=== PATIENT | male | born 1960 | race Caucasian/White ===

== ENCOUNTER 2021-03-31 10:21 | Inpatient (IN) ==
--- NOTE | 2021-03-31 10:44 | Emergency Department Note ---
Impression & Plan Stroke-like symptoms, Hypertension, uncontrolled, Abnormal EKG, Transient cerebral ischemia ED Provider Note NAME: BRISA OLIVA AGE: 60 SEX: M : 1960 ARRIVES VIA: Walk-In INFORMANT: Patient ED PROVIDER(S): Nicola Laird DO CHIEF COMPLAINT: slurred speech HPI: Patient is a 60-year-old male who presents ER for slurred speech. Significant other noticed that he got up about 2 or 3 in the morning. And the slurred speech was there. It is much worse than it is now. He denies any headache or change in vision. No chest pain or shortness of breath. No nausea, vomiting, or diarrhea. No weakness or numbness. She notes that he woke up this morning and he is doing better and then friend texted her that he was having trouble in a Zoom meeting and consequently she came home and noticed slurred speech. She notes it is better than where it has been but is not normal. He denies taking any medications for blood pressures. ROS: See above HPI for pertinent positives & negatives. A total of 10 systems reviewed and were otherwise negative. PAST MEDICAL HISTORY:See Below PAST SURGICAL HISTORY:See Below FAMILY HISTORY:See Below SOCIAL HISTORY:See Below HOME MEDICATIONS:See Below ALLERGIES:See Below VITALS:See Below PHYSICAL EXAMINATION: GENERAL: Sitting up in bed, alert, well appearing, well nourished, no distress, non-toxic EYE EXAM: normal conjunctiva. PERRL and EOM's intact. OROPHARYNX: no exudate, no erythema, lips, buccal mucosa, and tongue normal and mucous membranes are moist NECK: supple, no nuchal rigidity, no adenopathy, non-tender LUNGS: Clear to auscultation. Normal chest wall mechanics HEART: no murmurs, S1 normal and S2 normal ABDOMEN: abdomen soft, non-tender, normo-active bowel sounds, no masses, no rebound or guarding. UPPER EXTREMITIES: upper extremities are grossly normal. LOWER EXTREMITIES: No pitting edema. NEURO EXAM: Normal sensorium, cranial nerves II-XII intact, normal speech, no weakness of arms, no weakness of legs. No drift. Finger to nose intact. Gross sensation intact. Able stand without difficulty. MEDICAL DECISION MAKING: Patient is a 60-year-old male who presents the ER for slurred speech which is been off and on since last night. Last known well was prior to bedtime. IV was established blood work was obtained. Labs show no significant leukocytosis or anemia. BMP with mild hypokalemia at 3.4. LFTs bilirubin and troponin was negative. Covid was negative. CT as well as CT angios of the head and neck showed no acute pathology. EKG was nondiagnostic. His neurologic exam is completely intact. Significant other still notes that there is a slight slurred speech but on my exam there is no audible slurring. At worst his NIH is 1. He is not a TPA candidate due to timing and low NIH. Patient was updated bedside. Question if this was secondary to blood pressure as upon presentation he was in the 240s by trended down to the 190s without intervention. Will hold on any treatment now as his symptoms are nearly completely resolved. Discussed with ricardo quintero hospitalist for further evaluation. Triage Nursing notes reviewed. Limited review of prior medical records performed Vital Signs: reviewed and remarkable for no significant abnormalities Differential diagnosis: Differential Diagnosis includes but is not limited to ischemic Stroke, hemorrhagic stroke, bells palsy, mass, neoplasm, migraine headache, seizure, subarachnoid hemorrhage, TIA, and transient global amnesia. ER treatment provided: See below Diagnostics interpreted by me: ECG: Sinus rhythm rate 88 Left axis No PVCs QTC 459 Cardiac Monitoring: An order was placed for continuous cardiac monitoring. The monitor shows a rate of 82 with sinus rhythm. Laboratory studies: As stated above and show below. Imaging studies: CTs as well as CT angios of the head and neck show no focal occlusion/clot Consultation(s): Discussed the hospitalist for further evaluation Procedures: none Critical Care: None Past Med/Surg History Social History Smoking Status: Never smoker Preferred Language: Filipino Feels Safe at Home: Yes Allergies Allergies Allergy/AdvReac Type Severity Reaction Status Date / Time CRUCIFEROUS VEGETABLES Allergy Severe PROJECTILE Uncoded 03/31/21 11:58 VOMITING Home Meds Home Medications Medication Instructions Recorded Confirmed No Known Home Medications 03/31/21 03/31/21 Results & Data (ED) Vital Signs Vital Signs - 24 hr 03/31/21 10:26 03/31/21 10:51 03/31/21 11:59 Temperature 36.4 C L Temperature Source Temporal Artery Scan Pulse Rate 88 Pulse Rate [Apical] 88 88 Pulse Rhythm Regular Pulse Strength Normal Respiratory Rate 20 18 18 Respiratory Effort / Characteristics Non-Labored Spontaneous Respiratory Depth Normal Respiratory Pattern Regular Blood Pressure 243/122 H Blood Pressure [Left Arm] 201/138 H 198/130 H Blood Pressure Mean 162 Blood Pressure Mean [Left Arm] 159 152 Blood Pressure Position Sitting Pulse Oximetry 99 97 97 Oxygen Delivery Method Room Air Room Air Room Air Sepsis Recent Fever Within 48 Hours No Sepsis New/Unexplained Change in Mental Status No Sepsis Action Taken by Nursing No Action Required 03/31/21 13:00 Temperature Temperature Source Pulse Rate Pulse Rate [Apical] 84 Pulse Rhythm Pulse Strength Respiratory Rate 18 Respiratory Effort / Characteristics Respiratory Depth Respiratory Pattern Blood Pressure Blood Pressure [Left Arm] 162/116 H Blood Pressure Mean Blood Pressure Mean [Left Arm] 131 Blood Pressure Position Pulse Oximetry 96 Oxygen Delivery Method Room Air Sepsis Recent Fever Within 48 Hours Sepsis New/Unexplained Change in Mental Status Sepsis Action Taken by Nursing Laboratory Data Result diagrams: 03/31/21 10:47 03/31/21 10:47 Lab Results 03/31/21 03/31/21 03/31/21 Range/Units 10:47 10:47 10:47 WBC 7.60 (4.8-10.8) K/uL RBC 4.52 L (4.7-6.1) M/uL Hgb 14.0 (14.0-18.0) g/dL Hct 40.6 L (42-52) % MCV 89.8 (80-100) fL MCH 31.0 (25-34) pg MCHC 34.5 (32-36) g/dL RDW Std Deviation 41.8 (36.4-46.3) fL RDW Coeff of Ariel 12.6 (11.5-14.5) % Plt Count 349 (130-400) K/uL MPV 9.7 (7.4-10.4) fL PT 9.8 (9.0-12.0) Seconds INR 1.0 (0.9-1.1) APTT 26.7 (21.0-31.0) Seconds PTT Ratio 1.0 Sodium 138 (136-145) mmol/L Potassium 3.4 L (3.5-5.1) mmol/L Chloride 106 (98-107) mmol/L Carbon Dioxide 24 (21-32) mmol/L Anion Gap 8.0 (3-11) BUN 14 (7-18) mg/dl Creatinine 0.95 (0.6-1.4) mg/dl Est Cr Clr Drug Dosing 80.6 ml/min Est GFR ( Amer) 99.0 Est GFR (Non-Af Amer) 85.4 BUN/Creatinine Ratio 14.9 (10-20) Glucose 125 H (70-99) mg/dl Calcium 9.4 (8.5-10.1) mg/dl Magnesium 2.2 (1.8-2.4) mg/dl Total Bilirubin 0.4 (0.2-1) mg/dl AST 19 (15-37) U/L ALT 37 (12-78) U/L Alkaline Phosphatase 79 (45-117) U/L Troponin I < 0.015 (0-0.045) ng/ml Total Protein 7.7 (6.4-8.2) gm/dl Albumin 3.8 (3.4-5.0) gm/dl Globulin 3.9 (2.5-4.0) gm/dl Albumin/Globulin Ratio 1.0 (0.9-2) COVID-19 Eval Order SARS-CoV-2 (PCR) (Negative) Influenza Type A (PCR) (Neg) Influenza Type B (PCR) (Neg) RSV (RT-PCR) (Neg) 03/31/21 03/31/21 Range/Units 11:35 11:35 WBC (4.8-10.8) K/uL RBC (4.7-6.1) M/uL Hgb (14.0-18.0) g/dL Hct (42-52) % MCV (80-100) fL MCH (25-34) pg MCHC (32-36) g/dL RDW Std Deviation (36.4-46.3) fL RDW Coeff of Ariel (11.5-14.5) % Plt Count (130-400) K/uL MPV (7.4-10.4) fL PT (9.0-12.0) Seconds INR (0.9-1.1) APTT (21.0-31.0) Seconds PTT Ratio Sodium (136-145) mmol/L Potassium (3.5-5.1) mmol/L Chloride (98-107) mmol/L Carbon Dioxide (21-32) mmol/L Anion Gap (3-11) BUN (7-18) mg/dl Creatinine (0.6-1.4) mg/dl Est Cr Clr Drug Dosing ml/min Est GFR ( Amer) Est GFR (Non-Af Amer) BUN/Creatinine Ratio (10-20) Glucose (70-99) mg/dl Calcium (8.5-10.1) mg/dl Magnesium (1.8-2.4) mg/dl Total Bilirubin (0.2-1) mg/dl AST (15-37) U/L ALT (12-78) U/L Alkaline Phosphatase (45-117) U/L Troponin I (0-0.045) ng/ml Total Protein (6.4-8.2) gm/dl Albumin (3.4-5.0) gm/dl Globulin (2.5-4.0) gm/dl Albumin/Globulin Ratio (0.9-2) COVID-19 Eval Order CovFluRsv at [facility] SARS-CoV-2 (PCR) NEGATIVE (Negative) Influenza Type A (PCR) Negative (Neg) Influenza Type B (PCR) Negative (Neg) RSV (RT-PCR) Negative (Neg) Administered Medications Discontinued Medications Aspirin (Aspirin Chew 324 Mg) 324 mg PO NOW STA Stop: 03/31/21 11:34 Last Admin: 03/31/21 12:28 Dose: Not Given Documented by: [id number] Ioversol (Optiray 350 500ml) 124 ml IV ONCE ONE Stop: 03/31/21 11:04 Last Admin: 03/31/21 11:03 Dose: 124 ml Documented by: [id number] Imaging Data Radiologist's Impression: Chest X-Ray 03/31/21 10:32 XR chest 1V portable HISTORY: 60 years-old Male stroke alert acute strokelike symptoms COMPARISON: None TECHNIQUE: AP view of the chest FINDINGS: Cardiac silhouette is mildly enlarged. No pneumothorax, pleural effusion, airspace consolidation or overt pulmonary edema. Bones of the chest appear grossly intact. IMPRESSION: No acute process. ACT 112: Negative or not required by law. The above report was generated using voice recognition software. It may contain grammatical, syntax or spelling errors. Electronically signed by: Vignesh Taylor M.D. 03/31/2021 10:[address] 03/31/21 10:32 CT SCAN OF THE BRAIN WITHOUT IV CONTRAST CLINICAL HISTORY: Strokelike symptoms. Slurred speech. COMPARISON STUDY: No priors. TECHNIQUE: Unenhanced axial CT scan of the brain is performed from the vertex to the skull base. A dose lowering technique was utilized adhering to the principles of ALARA. CT DOSE: 720.95 mGycm FINDINGS: Brain parenchyma: The brain parenchyma is normal in appearance. There is no hemorrhage, mass effect, or evidence of acute territorial ischemia by CT c riteria. Lewis-white matter differentiation is preserved. No extra-axial fluid collection is seen. Ventricles, sulci, cisterns: Normal in configuration. Intracranial vasculature: The visualized intracranial vasculature at the skull base is normal in appearance. Calvarium: Unremarkable. Sinuses and mastoids: The visualized paranasal sinuses are clear. The mastoid air cells are well pneumatized. Orbits: The bony orbits are grossly intact. IMPRESSION: There is no hemorrhage, mass effect, or evidence of acute territorial ischemia by CT criteria. ACT 112: Negative or not required by law. Electronically signed by: Eber Monreal M.D. 03/31/2021 11:13 AM Head CTA 03/31/21 10:35 CT ANGIOGRAM OF THE BRAIN CLINICAL HISTORY: Strokelike symptoms. Slurred speech. COMPARISON STUDY: Unenhanced CT of the brain performed concurrently on 03/31/2021. TECHNIQUE: Following the IV administration of 124 cc of Optiray 350, CT angiogram of the brain was performed from the skull base to the vertex. Images are reviewed in the axial, sagittal, and coronal planes. 3-D MIPS images are created and assessed. IV contrast was administered without complication. A dose lowering technique was utilized adhering to the principles of ALARA. CT DOSE: 1109.59 mGycm FINDINGS: Brain parenchyma: The brain parenchyma is normal in appearance. There is no hemorrhage, mass effect, or evidence of acute territorial ischemia by CT criteria. There is no evidence of enhancing mass lesion on the angiogram phase images. No extra-axial fluid collection is seen. Lewis-white matter differentiation is preserved. Ventricles, sulci, and cisterns: Normal in configuration. CT angiogram of the brain: The internal carotid arteries are widely patent, as are the anterior and middle cerebral arteries. The right A1 segment is atretic. The vertebrobasilar system and posterior cerebral arteries are widely patent. The right vertebral artery is dominant. The left vertebral artery is diminutive. There is no aneurysm, high-grade stenosis, or focal vessel cutoff identified throughout the intracranial circulation. Dural sinuses: Clear as visualized. Orbits: The bony orbits are intact. The orbital contents are normal as visualized. Sinuses and mastoids: The paranasal sinuses are clear. The mastoid air cells are well pneumatized. Calvarium: Unremarkable. Soft tissues: There is a 1.1 cm nodule in the left parotid gland. IMPRESSION: 1. There is no evidence of hemorrhage, mass effect, or acute territorial ischemia by CT criteria routine angiographic phase technique. 2. Unremarkable CT angiogram of the brain. 3. There is a 1.1 cm nodule in the left parotid gland. Nonemergent ENT follow-up is recommended. ACT 112: Negative or not required by law. Electronically signed by: Eber Monreal M.D. 03/31/2021 11:17 AM Neck CTA 03/31/21 10:35 CT angio neck with con CLINICAL HISTORY: Acute stroke like symptoms COMPARISON STUDY: No previous studies for comparison. TECHNIQUE: CT angiography was performed from the aortic arch to the skull base. MIP imaging was performed. The patient was scanned in a dynamic helical fashion during intravenous administration of 124 cc of Optiray. A dose lowering technique was utilized adhering to the principles of ALARA. CT DOSE: Technique: CT angiogram of the carotid and vertebral arteries was obtained using intravenous contrast and 3-D reconstruction. NASCET criteria was utilized. Findings: The right carotid revealed no evidence of aneurysm and no evidence of dissection. There is no evidence of hemodynamic significant stenosis. The left carotid revealed no evidence of hemodynamic significant stenosis. There is no evidence of aneurysm. There is no evidence of dissection. There is no evidence of hemodynamically significant vertebral stenosis. There is no evidence of vertebral dissection. There is a dominant right vertebral artery. IMPRESSION: No evidence of hemodynamically significant carotid or vertebral artery stenosis. No evidence of dissection. ACT 112: Negative or not required by law. Electronically signed by: Martin Barragan M.D. 03/31/2021 11:16 AM Discharge Plan Visit Data Chief Complaint: TIA Symptoms Stated Complaint: SLURRED SPEECH, UNSTEADY ED Provider: Nicola Laird Discharge Problem: Stroke-like symptoms, Hypertension, uncontrolled, Abnormal EKG, Transient cerebral ischemia Discharge Instructions Interventions: ED Discharge Assessment Last Done: 03/31/21 13:11 Forms Stand Alone Forms: Inbound[employer] Prescriptions Prescriptions: No Action No Known Home Medications RF: 0 Referrals Referrals: PCP,NO [Primary Care Provider] - Discharge Problem: Transient cerebral ischemia Qualifiers: Transient cerebral ischemia type: unspecified Qualified Code(s): G45.9 - Transient cerebral ischemic attack, unspecified
--- NOTE | 2021-03-31 10:52 | XRay Report ---
XR chest 1V portable HISTORY: 60 years-old Male stroke alert acute strokelike symptoms COMPARISON: None TECHNIQUE: AP view of the chest FINDINGS: Cardiac silhouette is mildly enlarged. No pneumothorax, pleural effusion, airspace consolidation or o vert pulmonary edema. Bones of the chest appear grossly intact. IMPRESSION: No acute process. ACT 112: Negative or not required by law. The above report was generated using voice recognition software. It may contain grammatical, syntax o r spelling errors. Electronically signed by: Vignesh Taylor M.D. 03/31/2021 10:51 AM
[2021-03-31 10:55] LABS: Hematocrit (blood only) 40.6 % (42-52); Mean Corpuscular Hgb Conc 34.5 g/dL (32-36); Mean Corpuscular Volume 89.8 fL (80-100); Mean Platelet Volume 9.7 fL (7.4-10.4); Platelet Count 349 K/uL (130-400); RDW Coefficient of Variation 12.6 % (11.5-14.5); RDW Standard Deviation 41.8 fL (36.4-46.3); Red Blood Count 4.52 M/uL (4.7-6.1)
[2021-03-31] MEDS ORDERED: OPTIRAY 350 500ml IV ONE (11:03)
[2021-03-31 11:06] LABS: Partial Thromboplastin Time 26.7 Seconds (21.0-31.0); Prothrombin Time 9.8 Seconds (9.0-12.0)
--- NOTE | 2021-03-31 11:15 | CT Scan Report ---
CT SCAN OF THE BRAIN WITHOUT IV CONTRAST CLINICAL HISTORY: Strokelike symptoms. Slurred speech. COMPARISON STUDY: No priors. TECHNIQUE: Unenhanced axial CT scan of the brain is performed from the vertex to the skull base. A d ose lowering technique was utilized adhering to the principles of ALARA. CT DOSE: 720.95 mGycm FINDINGS: Brain parenchyma: The brain parenchyma is normal in appearance. There is no hemorrhage, mass effect, or evidence of acute territorial ischemia by CT criteria. Lewis-white matter differentiation is preser corby. No extra-axial fluid collection is seen. Ventricles, sulci, cisterns: Normal in configuration. Intracranial vasculature: The visualized intracranial vasculature at the skull base is normal in appe arance. Calvarium: Unremarkable. Sinuses and mastoids: The visualized paranasal sinuses are clear. The mastoid air cells are well pneu matized. Orbits: The bony orbits are grossly intact. IMPRESSION: There is no hemorrhage, mass effect, or evidence of acute territorial ischemia by CT laura [employer]. ACT 112: Negative or not required by law. Electronically signed by: Eber Monreal M.D. 03/31/2021 11:13 AM
[2021-03-31 11:17] LABS: Albumin Level 3.8 gm/dl (3.4-5.0); Aspartate Aminotransferase 19 U/L (15-37); BUN Creatinine Ratio 14.9 (10-20); Blood Urea Nitrogen 14 mg/dl (7-18); Calcium 9.4 mg/dl (8.5-10.1); Carbon Dioxide 24 mmol/L (21-32); Chloride 106 mmol/L (98-107); Creatinine Clr Calc Pharmacy 80.6 ml/min; Est GFR (Non-African American) 85.4; Glucose 125 mg/dl (70-99); Magnesium 2.2 mg/dl (1.8-2.4); Potassium 3.4 mmol/L (3.5-5.1); Sodium 138 mmol/L (136-145)
--- NOTE | 2021-03-31 11:17 | CT Scan Report ---
CT angio neck with con CLINICAL HISTORY: Acute stroke like symptoms COMPARISON STUDY: No previous studies for comparison. TECHNIQUE: CT angiography was performed from the aortic arch to the skull base. MIP imaging was perfo rmed. The patient was scanned in a dynamic helical fashion during intravenous administration of 124 c c of Optiray. A dose lowering technique was utilized adhering to the principles of ALARA. CT DOSE: Technique: CT angiogram of the carotid and vertebral arteries was obtained using intravenous contrast and 3-D reconstruction. NASCET criteria was utilized. Findings: The right carotid revealed no evidence of aneurysm and no evidence of dissection. There is no evidenc e of hemodynamic significant stenosis. The left carotid revealed no evidence of hemodynamic significant stenosis. There is no evidence of an eurysm. There is no evidence of dissection. There is no evidence of hemodynamically significant vertebral stenosis. There is no evidence of verte bral dissection. There is a dominant right vertebral artery. IMPRESSION: No evidence of hemodynamically significant carotid or vertebral artery stenosis. No evidence of disse ction. ACT 112: Negative or not required by law. Electronically signed by: Martin Barragan M.D. 03/31/2021 11:16 AM
--- NOTE | 2021-03-31 11:19 | CT Scan Report ---
CT ANGIOGRAM OF THE BRAIN CLINICAL HISTORY: Strokelike symptoms. Slurred speech. COMPARISON STUDY: Unenhanced CT of the brain performed concurrently on 03/31/2021. TECHNIQUE: Following the IV administration of 124 cc of Optiray 350, CT angiogram of the brain was pe rformed from the skull base to the vertex. Images are reviewed in the axial, sagittal, and coronal pl anes. 3-D MIPS images are created and assessed. IV contrast was administered without complication. A dose lowering technique was utilized adhering to the principles of ALARA. CT DOSE: 1109.59 mGycm FINDINGS: Brain parenchyma: The brain parenchyma is normal in appearance. There is no hemorrhage, mass effect, or evidence of acute territorial ischemia by CT criteria. There is no evidence of enhancing mass lesi on on the angiogram phase images. No extra-axial fluid collection is seen. Lewis-white matter differen tiation is preserved. Ventricles, sulci, and cisterns: Normal in configuration. CT angiogram of the brain: The internal carotid arteries are widely patent, as are the anterior and m iddle cerebral arteries. The right A1 segment is atretic. The vertebrobasilar system and posterior ce rebral arteries are widely patent. The right vertebral artery is dominant. The left vertebral artery is diminutive. There is no aneurysm, high-grade stenosis, or focal vessel cutoff identified throughou t the intracranial circulation. Dural sinuses: Clear as visualized. Orbits: The bony orbits are intact. The orbital contents are normal as visualized. Sinuses and mastoids: The paranasal sinuses are clear. The mastoid air cells are well pneumatized. Calvarium: Unremarkable. Soft tissues: There is a 1.1 cm nodule in the left parotid gland. IMPRESSION: 1. There is no evidence of hemorrhage, mass effect, or acute territorial ischemia by CT criteria rout ine angiographic phase technique. 2. Unremarkable CT angiogram of the brain. 3. There is a 1.1 cm nodule in the left parotid gland. Nonemergent ENT follow-up is recommended. ACT 112: Negative or not required by law. Electronically signed by: Eber Monreal M.D. 03/31/2021 11:17 AM
[2021-03-31 11:22] LABS: Alanine Aminotransferase 37 U/L (12-78); Alkaline Phosphatase 79 U/L (45-117); Bilirubin,Total 0.4 mg/dl (0.2-1); Globulin 3.9 gm/dl (2.5-4.0); Total Protein 7.7 gm/dl (6.4-8.2); Troponin I < 0.015 ng/ml (0-0.045)
[2021-03-31] MEDS ORDERED: ASPIRIN CHEW 324 MG PO STA (11:33)
[2021-03-31 12:36] LABS: Influenza A virus by PCR Negative (Neg); Influenza B virus by PCR Negative (Neg); RSV by PCR Negative (Neg); SARS CoV2 RNA(COVID-19)Cepheid NEGATIVE (Negative)
--- NOTE | 2021-03-31 13:00 | History & Physical Report ---
Date of Service March 31, 2021 Assessment & Plan (1) Stroke-like symptoms: Mr. Julian is a 60 year old male without significant past medical history who presents to [facility] ER today with a Stroke-like Syndrome manifesting as slurred speech and difficulty swallowing, markedly elevated blood pressure, and his EKG suggests LVH -- which is likely due to his untreated hypertension over the years. 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 Patient tried to take an Aspirin at one point this morning and he recalls having difficulty swallowing it. His slurred speech has persisted. Patient was doing a Zoom session with a friend this morning and his friend noticed his slurred speech. This friend subsequently texted the patient's girlfriend/SO and asked "is something going on with Philip? He was slurring his speech on our Zoom session". Patient offers no other complaints. A he denies any focal weakness, numbness, tingling, paralysis of any extrem ities. He has not had any changes bowel or bladder habits. No urinary or fecal incontinence. He denies any visual disturbances, black spots, blind spots, or loss of visual rider. He has not experienced anything like this past. Patient's girlfriend subsequently picked him up and brought to the ER for further evaluation. In the ER his work-up includes the following studies: -- CTA of the Neck shows no significant vertebral or carotid artery stenoses. -- CT scan of the head shows no acute processes. -- CTA of the Head shows that the internal carotid arteries are widely patent, as are the anterior and middle cerebral arteries. The right A1 segment is atretic. The vertebrobasilar system and posterior cerebral arteries are widely patent. The right vertebral artery is dominant. The left vertebral artery is diminutive. There is no aneurysm, high-grade stenosis, or focal vessel cutoff identified throughout the intracranial circulation. There is no evidence of hemorrhage, mass effect, or acute territorial ischemia by CT criteria routine angiographic phase technique. Patient failed his dysphagia screen in the ER, tongue deviating to the right. His blood pressure on presentation to the ER was 243/122, and it has subsequently come down to 198/130. Recommend the followin. Admit to observation status. 2. Echocardiogram. 3. Neurology consultation. 4. Aspirin 81 mg daily. He received full-strength aspirin in the ER. 5. Consider MRI the brain. 6. Speech Therapy evaluation regarding dysphagia. 7. Treat underlying Hypertension. (2) Hypertension, uncontrolled: 1. Begin Amlodipine 5 mg daily. 2. IV Hydralazine 20 mg q 4 hours as needed for SBP = or > 160 mmHg. 3. Minimize dietary salt intake. 4. If BP does not respond to this therapy, consider work-up for secondary hypertension. (3) Abnormal EKG: EKG shows LVH by voltage criteria. 1. Begin Amlodipine 5 mg daily. 2. IV Hydralazine 20 mg q 4 hours as needed for SBP = or > 160 mmHg. 3. Echocardiogram ordered. History of Present Illness Chief Complaint: 1. Slurred Speech, Difficulty Swallowing. 2. TIA/CVA Symptoms. 3. Uncontrolled Hypertension. Primary Care Provider: NO PCP Mr. Julian is a 60 year old male without significant past medical history who presents to [facility] ER today with slurred speech and markedly elevated blood pressure. Patient has been in his usual state of health leading up to admission. 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 Patient tried to take an Aspirin at one point this morning and he recalls having difficulty swallowing it. His slurred speech has persisted. Patient was doing a Zoom session with a friend this morning and his friend noticed his slurred speech. This friend subsequently texted the patient's girlfriend/SO and asked "is something going on with Philip? He was slurring his speech on our Zoom session". Patient offers no other complaints. A he denies any focal weakness, numbness, tingling, paralysis of any extremities. He has not had any changes bowel or bladder habits. No urinary or fecal incontinence. He denies any visual disturbances, black spots, blind spots, or loss of visual rider. He has not experienced anything like this past. Patient's girlfriend subsequently pick him up and brought to the ER for further evaluation. Thus far CTA of the Neck shows no significant vertebral or carotid artery stenoses. CT scan of the head shows no acute processes. CTA of the Head shows that the internal carotid arteries are widely patent, as are the anterior and middle cerebral arteries. The right A1 segment is atretic. The vertebrobasilar system and posterior cerebral arteries are widely patent. The right vertebral artery is dominant. The left vertebral artery is diminutive. There is no aneurysm, high-grade stenosis, or focal vessel cutoff identified throughout the intracranial circulation. There is no evidence of hemorrhage, mass effect, or acute territorial ischemia by CT criteria routine angiographic phase technique. Patient failed his dysphagia screen in the ER, tongue deviating to the right. His blood pressure on presentation to the ER was 243/122, and it has subsequently come down to 198/130. Patient is not on a daily medications. He does take some supplemental vitamins. This is not new or a change in his normal regimen. 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 HEENT: Head is atraumatic, normocephalic. EOM's intact. Facies symmetric. No perioral cyanosis. Tongue deviates to the right. Failed dysphagia screen. NECK: No JVD. JVP is at the level of the clavicle sitting upright. Carotid upstrokes are + 2 bilaterally. No bruits are noted. CHEST/LUNGS: Clear to auscultation throughout all lung rider. No wheezes, ral es, or crackles. CVS: S1 and S2 are regular without murmurs, gallops, or rubs. PMI is nondisplaced. No lifts, heaves, or thrills. No abdominal aortic or renal bruits. ABDOMINAL EXAM: Bowel sounds are present. No masses, organomegaly, or tenderness. EXTREMITIES: No clubbing or cyanosis. No edema. Intact posterior tibial and radial pulses bilaterally. NEUROLOGIC EXAM: Patient is awake, alert, and oriented. Pleasant and cooperative. Answers questions appropriately. Speech is mildly slurred. Normal movement in all 4 extremities. Gait pattern is unremarkable. Normal emergency vehicle operator strength bilaterally. Plus 5/5 strength in major muscle groups of the upper and lower extremities to manual muscle testing. EKG 03/31/21: -- NSR with LVH by voltage criteria. -- No prior tracings for comparison. Results & Data Results & Data ([facility]) Vital Signs (Past 12 Hours) Vital Signs Temp Pulse Pulse Resp BP BP Pulse Ox 03/31/21 11:59 88 18 198/130 H 97 03/31/21 10:51 88 18 201/138 H 97 03/31/21 10:26 36.4 C L 88 20 243/122 H 99 Laboratory Results Laboratory Results - last 24 hr 03/31/21 03/31/21 03/31/21 10:47 10:47 10:47 WBC 7.60 RBC 4.52 L Hgb 14.0 Hct 40.6 L MCV 89.8 MCH 31.0 MCHC 34.5 RDW Std Deviation 41.8 RDW Coeff of Ariel 12.6 Plt Count 349 MPV 9.7 PT 9.8 INR 1.0 APTT 26.7 PTT Ratio 1.0 Sodium 138 Potassium 3.4 L Chloride 106 Carbon Dioxide 24 Anion Gap 8.0 BUN 14 Creatinine 0.95 Est Cr Clr Drug Dosing 80.6 Est GFR ( Amer) 99.0 Est GFR (Non-Af Amer) 85.4 BUN/Creatinine Ratio 14.9 Glucose 125 H Calcium 9.4 Magnesium 2.2 Total Bilirubin 0.4 AST 19 ALT 37 Alkaline Phosphatase 79 Troponin I < 0.015 Total Protein 7.7 Albumin 3.8 Globulin 3.9 Albumin/Globulin Ratio 1.0 COVID-19 Eval Order SARS-CoV-2 (PCR) Influenza Type A (PCR) Influenza Type B (PCR) RSV (RT-PCR) 03/31/21 03/31/21 11:35 11:35 WBC RBC Hgb Hct MCV MCH MCHC RDW Std Deviation RDW Coeff of Ariel Plt Count MPV PT INR APTT PTT Ratio Sodium Potassium Chloride Carbon Dioxide Anion Gap BUN Creatinine Est Cr Clr Drug Dosing Est GFR ( Amer) Est GFR (Non-Af Amer) BUN/Creatinine Ratio Glucose Calcium Magnesium Total Bilirubin AST ALT Alkaline Phosphatase Troponin I Total Protein Albumin Globulin Albumin/Globulin Ratio COVID-19 Eval Order CovFluRsv at [facility] SARS-CoV-2 (PCR) NEGATIVE Influenza Type A (PCR) Negative Influenza Type B (PCR) Negative RSV (RT-PCR) Negative Diagnostic Findings CTA of HEAD 03/31/21: Brain parenchyma: The brain parenchyma is normal in appearance. There is no hemorrhage, mass effect, or evidence of acute territorial ischemia by CT criteria. There is no evidence of enhancing mass lesion on the angiogram phase images. No extra-axial fluid collection is seen. Lewis-white matter differentiation is preserved. Ventricles, sulci, and cisterns: Normal in configuration. CT angiogram of the brain: The internal carotid arteries are widely patent, as are the anterior and middle cerebral arteries. The right A1 segment is atretic. The vertebrobasilar system and posterior cerebral arteries are widely patent. The right vertebral artery is dominant. The left vertebral artery is diminutive. There is no aneurysm, high-grade stenosis, or focal vessel cutoff identified throughout the intracranial circulation. Dural sinuses: Clear as visualized. Orbits: The bony orbits are intact. The orbital contents are normal as visualized. Sinuses and mastoids: The paranasal sinuses are clear. The mastoid air cells are well pneumatized. Calvarium: Unremarkable. Soft tissues: There is a 1.1 cm nodule in the left parotid gland. IMPRESSION: 1. There is no evidence of hemorrhage, mass effect, or acute territorial ischemia by CT criteria routine angiographic phase technique. 2. Unremarkable CT angiogram of the brain. 3. There is a 1.1 cm nodule in the left parotid gland. Nonemergent ENT follow-up is recommended. NECK CTA 03/31/21: The right carotid revealed no evidence of aneurysm and no evidence of dissection. There is no evidence of hemodynamic significant stenosis. The left carotid revealed no evidence of hemodynamic significant stenosis. There is no evidence of aneurysm. There is no evidence of dissection. There is no evidence of hemodynamically significant vertebral stenosis. There is no evidence of vertebral dissection. There is a dominant right vertebral artery. IMPRESSION: -- No evidence of hemodynamically significant carotid or vertebral artery stenosis. No evidence of dissection. HEAD CT SCAN 03/31/21: Brain parenchyma: The brain parenchyma is normal in appearance. There is no hemorrhage, mass effect, or evidence of acute territorial ischemia by CT criteria. Lewis-white matter differentiation is preserved. No extra-axial fluid collection is seen. Ventricles, sulci, cisterns: Normal in configuration. Intracranial vasculature: The visualized intracranial vasculature at the skull base is normal in appearance. Calvarium: Unremarkable. Sinuses and mastoids: The visualized paranasal sinuses are clear. The mastoid air cells are well pneumatized. Orbits: The bony orbits are grossly intact. IMPRESSION: -- There is no hemorrhage, mass effect, or evidence of acute territorial ischemia by CT criteria. Code Status & VTE Plan Code Status Full Code VTE Prophylaxis Plan VTE Prophylaxis will be ordered: Yes Supervising Physician Co-Signing Physician Notes Discuss case with CASI, agree with his note above. Patient initially mated with significantly elevated blood pressure along with strokelike symptoms as documented above. Initial work-up including brain imaging showed no new CVA. Plan to continue stroke work-up including MRI. Patient's blood pressure is significantly elevated, should be brought down slowly over the next 24 hours. Agree with aspirin dosing as well as initiating amlodipine. Neurology consulted, will await further recommendations. PG Care Time/CCT Total # of Minutes Spent Total Time Spent with Patient: Total time spent is greater than 50% in coordination of care (as documented) at patient's floor/unit and/or counseling patient:40 Coding Level of Care Code 33446 OBS Care - Level 3 Diagnoses Stroke-like symptoms R29.90 Hypertension, uncontrolled I10 Abnormal EKG R94.31 Time Spent (min) 55
[2021-03-31] MEDS ORDERED: hydrALAZINE HCL 20 MG/ML VIAL IV PRN (13:05)
[2021-03-31] MEDS ORDERED: ZOLPIDEM TARTRATE 5 MG TAB PO PRN (14:22)
[2021-03-31] MEDS ORDERED: NITROGLYCERIN SL 0.4 MG/TAB TAB SL PRN (14:22)
[2021-03-31] MEDS ORDERED: ONDANSETRON INJ 2 MG/ML 2 ML VIAL IV PRN (14:22)
[2021-03-31] MEDS ORDERED: MAGNESIUM HYDROXIDE SUSP 30 ML UDC PO PRN (14:22)
[2021-03-31] MEDS ORDERED: ACETAMINOPHEN 325 MG TAB PO PRN (14:22)
[2021-03-31] MEDS ORDERED: POLYETHYLENE (MIRALAX) 17 GM PACK PO PRN (14:22)
[2021-03-31] MEDS ORDERED: ALUMINUM/MAGNESIUM SUSP 30 ML UDC PO PRN (14:22)
--- NOTE | 2021-03-31 16:01 | CT Scan Report ---
CT OF THE HEAD WITHOUT CONTRAST CLINICAL HISTORY: Stroke alert. Right-sided weakness. COMPARISON STUDY: Head CT and CTA of the head March 31, 2021 at 10:[address] DOSE: 614.27 mGy.cm TECHNIQUE: Helical axial images of the head were obtained without IV contrast. Automated exposure con trol was utilized for the study. A dose lowering technique was utilized adhering to the principles o f ALARA. FINDINGS: No acute intracranial hemorrhage, midline shift or mass effect is present. The ventricular system is unremarkable. The basal cisterns are patent. No extra-axial collections are present. There are no findings to suggest acute dural sinus thrombosis or acute territorial infarct. No significant calvarial abnormalities are present. Visualized portions of the sinuses and mastoid air cells are leigh [place] ar. Incidental note is made of intravascular contrast from recent contrast-enhanced CT. IMPRESSION: No acute intracranial findings. ACT 112: Negative or not required by law. Electronically signed by: Yosvany Clark M.D. 03/31/2021 4:00 PM
[2021-03-31] MEDS: amLODIPine BESYLATE 5 MG TAB PO SCH (16:42)
[2021-03-31] MEDS: ENOXAPARIN INJ 40 MG/0.4 ML SYR SQ SCH (16:42)
--- NOTE | 2021-03-31 17:20 | XCELERA ---
[id number]
[2021-03-31] MEDS ORDERED: GADOBUTROL 65ML VIAL IV ONE (19:04)
--- NOTE | 2021-03-31 19:49 | Magnetic Resonance Report ---
MRI OF THE BRAIN WITHOUT AND WITH IV CONTRAST CLINICAL HISTORY: Stroke like syndrome. Slurred speech. COMPARISON STUDY: Head CT and CTA of the head performed earlier today. TECHNIQUE: Utilizing a 1.5 Yareli magnet and dedicated coil, multiplanar, multiecho imaging of the br ain was performed pre and postcontrast administration. IV administration of 7.5 mL of Gadavist contr ast was uneventful. FINDINGS: Two small infarcts within the left anterior lynda are noted. These measure up to 7 mm. These are hypointense on the ADC map and therefore reflect acute infarcts. There is minimal corresponding T2 hyperintensity. No additional foci of restricted diffusion are present. Ventricular system is norm al. Basilar cisterns are patent. There are no extra-axial collections. There is no intracranial mass or pathologic enhancement. Calvarial signal is normal. Multiple white matter T2 hyperintense foci sug gest small vessel disease. Orbits are unremarkable. There is no evidence for sinusitis. There is no m astoid fluid. IMPRESSION: 1. Two small acute left pontine infarcts. No hemorrhage. No mass effect. 2. No intracranial mass or pathologic enhancement. 3. T2 hyperintense foci suggestive of small vessel disease. ACT 112: Negative or not required by law. Electronically signed by: Yosvany Clark M.D. 03/31/2021 7:48 PM
[2021-03-31] MEDS ORDERED: PHARMACIST DISCHARGE MED REC CONSULT PRN (22:45)
[2021-04-01 05:51] LABS: Basophils # (auto) 0.02 K/uL (0-0.2); Basophils % (auto) 0.2 %; Eosinophils # (auto) 0.06 K/uL (0-0.5); Eosinophils % (auto) 0.6 %; Hematocrit (blood only) 40.3 % (42-52); Hemoglobin 13.8 g/dL (14.0-18.0); Immature Granulocytes # (auto) 0.03 K/uL (0.00-0.02); Immature Granulocytes % (auto) 0.3 %; Lymphocytes # (auto) 1.23 K/uL (1.2-3.4); Lymphocytes % (auto) 11.8 %; Mean Corpuscular Hemoglobin 30.7 pg (25-34); Mean Corpuscular Hgb Conc 34.2 g/dL (32-36); Mean Corpuscular Volume 89.8 fL (80-100); Mean Platelet Volume 9.9 fL (7.4-10.4); Monocytes # (auto) 0.88 K/uL (0.11-0.59); Monocytes % (auto) 8.4 %; Neutrophils # (auto) 8.23 K/uL (1.4-6.5); Neutrophils % (auto) 78.7 %; Platelet Count 344 K/uL (130-400); RDW Coefficient of Variation 12.8 % (11.5-14.5); Red Blood Count 4.49 M/uL (4.7-6.1); White Blood Count 10.45 K/uL (4.8-10.8)
[2021-04-01] MEDS ORDERED: hydrALAZINE HCL 20 MG/ML VIAL IV PRN (05:51)
[2021-04-01 06:22] LABS: BUN Creatinine Ratio 18.3 (10-20); Calcium 8.4 mg/dl (8.5-10.1); Creatinine Clr Calc Pharmacy 89.1 ml/min; Est GFR (African American) 107.7; Est GFR (Non-African American) 92.9; Potassium 3.5 mmol/L (3.5-5.1)
--- NOTE | 2021-04-01 07:17 | Electrocardiogram Report ---
Test Reason : Blood Pressure : / mmHG Vent. Rate : 088 BPM Atrial Rate : 088 BPM P-R Int : 162 ms QRS Dur : 098 ms QT Int : 380 ms P-R-T Axes : 041 -18 058 degrees QTc Int : 459 ms Normal sinus rhythm Voltage criteria for left ventricular hypertrophy Abnormal ECG No previous ECGs available Confirmed by Eduardo Cevallos ([id number]) on 04/01/2021 7:17:30 AM Referred By: Confirmed By:Eduardo Cevallos
[2021-04-01 07:58] LABS: Estimated Average Glucose 117 mg/dl; Hemoglobin A1C 5.7 % (4.5-5.6)
--- NOTE | 2021-04-01 09:36 | Neurology Consultation ---
Date of Consultation April 01, 2021 Assessment & Plan (1) Left pontine stroke: Acute anterior left pontine stroke resulting in dysarthria and a right hemiparesis. Patient appears to have longstanding poorly controlled hypertension as a significant stroke risk factor. He does not smoke and does not have diabetes mellitus. CT angiography of the head and neck are unremarkable, no evidence of a hemodynamically significant lesion. His echocardiogram does reveal concentric LVH and mild dilatation of the left atrium. No PFO. No evidence of atrial fibrillation at this time. No prior history of DVT, PE, or other thromboembolic disease. Clinical suspicion for an underlying hypercoagulable disorder is low in spite of patient's relatively young age. Again, poorly controlled hypertension appears to be a significant stroke risk factor in this patient. He does have a modest elevation in total cholesterol as well. Agree with daily low-dose aspirin. Consider starting a statin as well. Consider obtaining mobile cardiac outpatient telemetry. Would obtain a hypercoagulable panel as well. Continue medical management of hypertension. Try to get systolic blood pressure closer to 150 mmHg for the time being. Avoid aggressive lowering of blood pressure. Patient will need to establish with a PCP for ongoing management of cardiovascular risk factors. He will likely need additional treatment with PT/OT/speech therapy. May follow-up in neurology clinic in 3 to 4 weeks. History of Present Illness Reason for Consultation: Stroke Requesting Physician: Juanjo Alfred PA-C Attending Physician: Benito Jorgensen History of Present Illness The patient is a 60-year-old male with a chief complaint of slurred speech. He noticed his symptoms upon awakening very early in the morning, 2 or 3 AM, prior to his presentation. He was apparently I walk-in in the emergency department later that morning. He was notably hypertensive with a blood pressure of 243/122. His blood pressure has been improving and is 161/95 this morning. He does not have a primary care physician and does not take any prescription medications. He is self-employed, information technology. Patient is a non- smoker. Does indicate that his father had a stroke. He has begun to notice moises t his right arm and leg seem a bit weak as well. This issue was not as evident at the time of his initial presentation in the emergency department. His symptoms have been fairly persistent. He denies experiencing any diplopia, headache or vertigo. He has had extensive neuroimaging completed including CT of the head, CT angiography of the head and neck, and brain MRI. CT angiography was unremarkable. Brain MRI does reveal 2 small acute anterior left pontine infarcts. Additional details as below. Family history patient's father had a stroke in his 60's. Allergies Allergy/AdvReac Type Severity Reaction Status Date / Time CRUCIFEROUS VEGETABLES Allergy Severe PROJECTILE Uncoded 03/31/21 11:58 VOMITING Home Medications Medication Instructions Recorded Confirmed Type No Known Home Medications 03/31/21 03/31/21 History Patient History Social History Smoking Status: Never smoker Second Hand Exposure: No; Hx Alcohol Use: Yes Alcohol type: wine Hx Substance Use: No Preferred Language: Turkmen Communication Ability: Effective Sequins Slinger Required: No Beliefs That Will Affect Care: None Current Living Situation: Significant Other Other Information That Helps Us Care for You: No Feels Safe at Home: Yes Safety Concerns: Feels Safe At This Time Assistive Devices: Oxygen - Continuous Review of Systems Constitutional: no fever and no chills Eyes: no blind spots and no diplopia Ear, Nose, Mouth, Throat: no hearing loss Respiratory: no cough and no dyspnea Cardiovascular: no chest pain and no palpitations Gastrointestinal: no nausea and no vomiting Genitourinary: no dysuria Musculoskeletal: no neck pain and no myalgia Integumentary: no rash and no lesions Neurologic: as per Subjective / HPI, + localized weakness and + abnormal speech; no headache(s) Psychiatric: no depression and no anxiety Hematologic / Lymphatic: no easy bleeding and no easy bruising Exam (Neuro) Constitutional: well developed and well nourished; no acute distress Eyes: normal visual rider by confrontation, PERRL, normal accommodation and EOM intact bilaterally; no fundoscopic abnormality, no nystagmus and no papilledema Cardiovascular: Vessels: normal carotid upstroke; no carotid bruit Neurologic: Oriented to:: Person, Place and Time Memory: Short Term Intact and Remote Intact Attention: Span Intact and Concentration Intact Language: Naming Objects and Repeating Phrases Speech Fluency: Dysarthria Speech Aphasia: negative Aphasia Fund of Knowledge: Current Events, Past History and Vocabulary Cranial Nerves: Normal II (Visual rider full to confrontation, visual acuity normal), III, IV, (Pupils equal round reactive to light and accommodation, eye movements normal), V (Facial sensation intact), VIII (Hearing intact), IX, X (Palate elevates to midline) and XI (Shoulder shrug intact); Abnorm VII (Weakness of the right lower facial musculature/lower facial droop noted.) and XII (Tongue deviates to the right with protrusion) Motor Strength: Hemiparesis (mild) Laterality: Right; negative Normal Lower Extremities, Normal Upper Extremities and Pronator Drift Motor Tone: Normal Lower Extremities and Normal Upper Extremities Muscle Bulk/Involuntary Movements: No Involuntary Movements; negative Muscle Atrophy Sensation: Light Touch Intact, Pain/Temperature Intact, Vibration Intact and Proprioception Intact Coordination: Normal; negative Limited Balance, Dysdiadochokinesia, Finger-Nose Abnormal and Heel-Naranjo Abnormal Deep Tendon Reflexes: Rt Triceps: 3+, Lt Triceps: 2+, Rt Biceps: 3+, Lt Biceps: 2+, Rt Brachioradialis: 3+, Lt Brachioradialis: 2+, Rt Patellar: 3+, Lt Patellar: 2+, Rt Ankle: 3+ and Lt Ankle: 2+ Special Tests: Babinski Present (R>L) Details: Gait not tested in the context of patient's current neurological status. Results & Data ([facility]) Vital Signs (Past 12 Hours) Vital Signs Temp Pulse Pulse Resp BP Pulse Ox 04/01/21 08:53 161/95 H 04/01/21 07:32 36.7 C 95 H 18 196/122 H 96 04/01/21 03:13 36.3 C L 98 H 13 174/105 H 97 04/01/21 00:00 96 H 03/31/21 23:23 37.0 C 99 H 20 165/98 H 96 Laboratory Results WBC 10.45, hemoglobin 13.8, hematocrit 40.3, platelet count 344, sodium 142, potassium 3.5, BUN 16, creatinine 0.86, glucose 100, hemoglobin A1c 5.7, triglycerides 113, cholesterol 253, LDL 180, VLDL 23, HDL [address] of the head, CT angiography of the head and neck, and brain MRI are as described in the history of present illness. I reviewed the images and radiologist's interpretation of these tests. An electrocardiogram reveals a normal sinus rhythm, left ventricular hypertrophy, 88 bpm. An echocardiogram reveals hyperdynamic left ventricular systolic function, EF greater than 70%. There is severe concentric left ventricular hypertrophy. Mild left atrial dilatation. No significant valvular abnormalities. No right to left interatrial shunt. Coding Level of Care Code 56262 Initial In Care Lvl 3 Diagnoses Left pontine stroke I63.50
[2021-04-01] MEDS: amLODIPine BESYLATE 5 MG TAB PO SCH (10:43)
[2021-04-01] MEDS: ASPIRIN 81 MG ECTAB PO SCH (10:44)
--- NOTE | 2021-04-01 10:49 | Hospitalist Progress Note ---
Date of Service April 01, 2021 Assessment & Plan (1) Left pontine stroke: Mr. Julian was admitted with stroke like symptoms: slurred speach, difficulty swallowing, elevated BP and EKG suggesting long standing UNTREATED HYPERTENSION. In the ER his work-up includes the following studies: -- CTA of the Neck shows no significant vertebral or carotid artery stenoses. -- CT scan of the head shows no acute processes. -- CTA of the Head shows that the internal carotid arteries are widely patent, as are the anterior and middle cerebral arteries. The right A1 segment is atretic. The vertebrobasilar system and posterior cerebral arteries are widely patent. The right vertebral artery is dominant. The left vertebral artery is diminutive. There is no aneurysm, high-grade stenosis, or focal vessel cutoff identified throughout the intracranial circulation. There is no evidence of hemorrhage, mass effect, or acute territorial ischemia by CT criteria routine angiographic phase technique. Patient failed his dysphagia screen in the ER, tongue deviating to the right His Blood pressure was elevated and given that he had hypertensive emergency: HTN in 243/122 which came down to 198/130. Patient required hydralazine IV on the floor and symptoms worsened with BP documented near 150s at 16:00 However, afterwards his symptoms worsened. This could also have been an evolution of his stroke vs watershed vs lower blood pressure. Given that CT scan will not capture an acute stroke. Once MD saw patient his symptoms had improved. MRI of brain was completed and showed a stroke. Patient today continues to have symptoms of right sided weakness. will hold IV meds and start lisinopril in AM with amlodipine. (2) Stroke-like symptoms: Mr. Julian is a 60 year old male without significant past medical history who presents to [facility] ER today with a Stroke-like Syndrome manifesting as slurred speech and difficulty swallowing, markedly elevated blood pressure, and his EKG suggests LVH -- which is likely due to his untreated hypertension over the years. In the analytics intern hours today, he got out of the bed to use the bathroom and his partner/significant other noticed that his speech was slurred and his voice lacked its "usual oomph". Patient tried to take an Aspirin at one point this morning and he recalls having difficulty swallowing it. His slurred speech has persisted. Patient was doing a Zoom session with a friend this morning and his friend noticed his slurred speech. This friend subsequently texted the patient's girlfriend/SO and asked "is something going on with Philip? He was slurring his speech on our Zoom session". Patient offers no other complaints. A he denies any focal weakness, numbness, tingling, paralysis of any extremities. He has not had any changes bowel or bladder habits. No urinary or fecal incontinence. He denies any visual disturbances, black spots, blind spots, or loss of visual rider. He has not experienced anything like this past. Patient's girlfriend subsequently picked him up and brought to the ER for further evaluation. . His blood pressure on presentation to the ER was 243/122, and it has subsequently come down to 198/130. Recommend the followin. Admit to observation status. 2. Echocardiogram. 3. Neurology consultation. 4. Aspirin 81 mg daily. He received full-strength aspirin in the ER. 5. Consider MRI the brain. 6. Speech Therapy evaluation regarding dysphagia. 7. Treat underlying Hypertension. (3) Hypertension, uncontrolled: 1. Begin Amlodipine 5 mg daily. 2. IV Hydralazine 20 mg q 4 hours as needed for SBP = or > 160 mmHg. 3. Minimize dietary salt intake. 4. If BP does not respond to this therapy, consider work-up for secondary hypertension. (4) Abnormal EKG: EKG shows LVH by voltage criteria. 1. Begin Amlodipine 5 mg daily. 2. IV Hydralazine 20 mg q 4 hours as needed for SBP = or > 160 mmHg. 3. Echocardiogram ordered. Admission and Anticipated Discharge Date Admission Date: March 31, 2021 Subjective Patient reports having right sided weakness and difficulty speaking. He states he feels better today than yesterday. He reports that he developed worsening symptoms yesterday after getting his IV blood pressure medication. He felt unbalanced today when he went to the bathroom, but overall he feels better than yesterday. Review of Systems Review of Systems: All systems reviewed & are unremarkable except as noted in HPI & below Physical Exam Physical Exam: GENERAL: Patient in no acute distress. HEENT: Head is atraumatic, normocephalic. EOM's intact. Facies symmetric. No perioral cyanosis. Tongue deviates to the right. NECK: No JVD. JVP is at the level of the clavicle sitting upright. Carotid upstrokes are + 2 bilaterally. No bruits are noted. CHEST/LUNGS: Clear to auscultation throughout all lung rider. No wheezes, rales, or crackles. CVS: S1 and S2 are regular without murmurs, gallops, or rubs. PMI is nondisplaced. No lifts, heaves, or thrills. No abdominal aortic or renal bruits. ABDOMINAL EXAM: Bowel sounds are present. No masses, organomegaly, or tenderness. EXTREMITIES: No clubbing or cyanosis. No edema. Intact posterior tibial and radial pulses bilaterally. NEUROLOGIC EXAM: Patient is awake, alert, and oriented. Pleasant and c ooperative. Answers questions appropriately. Speech is slurred, he has right sided facial paralysis, he has decreased strength in right arm 4/5, and hip flexors 3/5. All other groups in lower extremity: 5/5 Results & Data Results & Data ([facility]) Vital Signs (Past 12 Hours) Vital Signs Temp Pulse Pulse Resp BP Pulse Ox 04/01/21 08:53 161/95 H 04/01/21 07:32 36.7 C 95 H 18 196/122 H 96 04/01/21 03:13 36.3 C L 98 H 13 174/105 H 97 04/01/21 00:00 96 H 03/31/21 23:23 37.0 C 99 H 20 165/98 H 96 PG Care Time/CCT Total # of Minutes Spent Total Time Spent with Patient: Total time spent is greater than 50% in coordination of care (as documented) at patient's floor/unit and/or counseling patient: Coding Level of Care Code 65560 Subseq Hosp Care Lvl 3 Diagnoses Left pontine stroke I63.50 Stroke-like symptoms R29.90 Hypertension, uncontrolled I10 Abnormal EKG R94.31 Time Spent (min) 35
[2021-04-01] MEDS: ENOXAPARIN INJ 40 MG/0.4 ML SYR SQ SCH (16:06)
[2021-04-01] MEDS: METOPROLOL TARTRATE 1 MG/ML VIAL IV PRN (21:24)
[2021-04-02] MEDS: METOPROLOL TARTRATE 1 MG/ML VIAL IV PRN (02:44)
[2021-04-02] MEDS ORDERED: METOPROLOL TARTRATE 1 MG/ML VIAL IV STA (04:06)
[2021-04-02] MEDS: METOPROLOL TARTRATE 25 MG TAB PO SCH ×3 (04:53→19:59)
[2021-04-02 06:46] LABS: Basophils # (auto) 0.02 K/uL (0-0.2); Basophils % (auto) 0.2 %; Eosinophils # (auto) 0.11 K/uL (0-0.5); Hematocrit (blood only) 41.3 % (42-52); Hemoglobin 13.8 g/dL (14.0-18.0); Immature Granulocytes # (auto) 0.03 K/uL (0.00-0.02); Immature Granulocytes % (auto) 0.3 %; Lymphocytes # (auto) 1.76 K/uL (1.2-3.4); Lymphocytes % (auto) 15.5 %; Mean Corpuscular Hemoglobin 30.3 pg (25-34); Mean Corpuscular Hgb Conc 33.4 g/dL (32-36); Mean Corpuscular Volume 90.6 fL (80-100); Mean Platelet Volume 9.8 fL (7.4-10.4); Monocytes # (auto) 1.18 K/uL (0.11-0.59); Monocytes % (auto) 10.4 %; Neutrophils # (auto) 8.28 K/uL (1.4-6.5); Neutrophils % (auto) 72.6 %; Platelet Count 362 K/uL (130-400); RDW Coefficient of Variation 13.2 % (11.5-14.5); RDW Standard Deviation 43.6 fL (36.4-46.3); Red Blood Count 4.56 M/uL (4.7-6.1); White Blood Count 11.38 K/uL (4.8-10.8)
[2021-04-02 07:20] LABS: BUN Creatinine Ratio 22.2 (10-20); Calcium 8.4 mg/dl (8.5-10.1); Est GFR (African American) 106.7; Est GFR (Non-African American) 92.1; Potassium 3.7 mmol/L (3.5-5.1)
[2021-04-02] MEDS ORDERED: METOPROLOL TARTRATE 25 MG TAB PO SCH (09:00)
[2021-04-02] MEDS: lisinopril 10 MG TAB PO SCH (09:06)
[2021-04-02] MEDS: amLODIPine BESYLATE 5 MG TAB PO SCH (09:06)
[2021-04-02] MEDS: ASPIRIN 81 MG ECTAB PO SCH (09:06)
[2021-04-02] MEDS: ATORVASTATIN 40 MG TAB PO SCH (11:40)
--- NOTE | 2021-04-02 15:27 | Hospitalist Progress Note ---
Date of Service April 02, 2021 Assessment & Plan (1) Left pontine stroke: Mr. Julian was admitted with stroke like symptoms: slurred speach, difficulty swallowing, elevated BP and EKG suggesting long standing UNTREATED HYPERTENSION. In the ER his work-up includes the following studies: -- CTA of the Neck shows no significant vertebral or carotid artery stenoses. -- CT scan of the head shows no acute processes. -- CTA of the Head shows that the internal carotid arteries are widely patent, as are the anterior and middle cerebral arteries. The right A1 segment is atretic. The vertebrobasilar system and posterior cerebral arteries are widely patent. The right vertebral artery is dominant. The left vertebral artery is diminutive. There is no aneurysm, high-grade stenosis, or focal vessel cutoff identified throughout the intracranial circulation. There is no evidence of hemorrhage, mass effect, or acute territorial ischemia by CT criteria routine angiographic phase technique. Patient failed his dysphagia screen in the ER, tongue deviating to the right His Blood pressure was elevated and given that he had hypertensive emergency: HTN in 243/122 which came down to 198/130. Patient required hydralazine IV on the floor and symptoms worsened with BP documented near 150s on 04/01 However, afterwards his symptoms worsened with right-sided weakness. This could also have been an evolution of his stroke vs watershed vs lower blood pressure. MRI of brain was completed and showed 2 small acute left pontine strokes Patient reports symptoms today are stable from yesterday with continued slurred speech, some difficulty with chewing although worked with speech therapy, and weakness on the right side upper extremity greater than lower extremity Appreciate neurology consultation -Blood pressure is now with improved control after adding lisinopril -Continue aspirin 81 mg daily -Add atorvastatin 40 mg daily as lipids are uncontrolled-total cholesterol 253, LDL 180 Hemoglobin A1c normal at 5.7% Echocardiogram negative No arrhythmia on telemetry-suggest 30-day cardiac event monitor after discharge -Neurology also recommended hypercoagulable [id number] was ordered with the exception of Antithrombin III and lupus anticoagulant as he was on Lovenox at the time the labs were drawn-these can be ordered through PCP and outpatient visit and results of hypercoagulable work-up will need to be followed up on. PT/OT is recommending rehab-he has no insurance and therefore case management is assisting (2) Hypertension, uncontrolled: As above, hypertensive emergency on admission in the setting of acute left pontine stroke Blood pressures now much improved after the following: -Started amlodipine 5 mg daily. -Added lisinopril 10 mg daily Added metoprolol tartrate 12.5 mg p.o. twice daily (3) Hyperlipidemia: Significantly elevated lipid panel as above Start atorvastatin Check lipid panel and LFTs in 6 weeks (4) Abnormal EKG: EKG shows LVH by voltage criteria consistent with uncontrolled hypertension. Hypertension medications as above Echocardiogram negative (5) DVT prophylaxis: Lovenox SQ, SCDs Disposition-continued stay, awaiting rehab placement Continue to follow blood pressure control-May be ready for discharge on 04/03 Admission and Anticipated Discharge Date Admission Date: March 31, 2021 Anticipated date of discharge: 04/03/21 Subjective Pt feels ok today, still weak but not worse from previous. Is feeling a little better with eating. Is having speech issues. BPs better controlled. Denies CP or SOB. Tele with NSR, rates 60-70s. Review of Systems Review of Systems: All systems reviewed & are unremarkable except as noted in HPI & below Physical Exam Constitutional: WD/WN, vitals as above Eyes: + anicteric sclerae and EOM intact bilaterally; no anisocoria and no nystagmus ENMT: external ear and nose normal, oropharynx normal Neck: trachea midline, no thyromegaly Respiratory: normal respiratory effort, lungs clear to auscultation Cardiovascular: RRR, no murmur, no edema Chest (Breasts): Chest: normal inspection of chest Gastrointestinal (Abdomen): normal bowel sounds, soft, nontender, no h epatosplenomegaly Musculoskeletal: Extremities: extremities normal to inspection; no cyanosis and no clubbing Skin: no rashes, warm and dry Neurologic: CN's II-XI intact bilaterally (except tongue deviation to right,rt facial droop), + focal motor deficit (1/5 strength RUE,4/5 RLE,5/5 otherwise) and awake; not confused Motor/Sensory: no tremor and no sensory deficit Psychiatric: A+Ox3, euthymic affect Lymphatic: no lymphedema Results & Data Results & Data ([facility]) Vital Signs (Past 12 Hours) Vital Signs Temp Pulse Pulse Resp BP BP Pulse Ox 04/02/21 11:47 36.6 C 77 18 152/97 H 95 04/02/21 08:10 36.6 C 74 20 170/112 H 95 04/02/21 08:00 67 04/02/21 05:29 63 163/99 H 04/02/21 04:30 67 166/103 H 04/02/21 04:12 66 172/99 H 04/02/21 03:46 70 04/02/21 03:45 36.7 C 86 19 164/101 H 95 Laboratory Results 04/02/21 04/02/21 04/02/21 Range/Units 12:19 12:19 12:19 WBC (4.8-10.8) K/uL RBC (4.7-6.1) M/uL Hgb (14.0-18.0) g/dL Hct (42-52) % MCV (80-100) fL MCH (25-34) pg MCHC (32-36) g/dL RDW Std Deviation (36.4-46.3) fL RDW Coeff of Ariel (11.5-14.5) % Plt Count (130-400) K/uL MPV (7.4-10.4) fL Immature Gran % (Auto) % Neut % (Auto) % Lymph % (Auto) % [place] % (Auto) % Eos % (Auto) % Baso % (Auto) % Neut # (Auto) (1.4-6.5) K/uL Lymph # (Auto) (1.2-3.4) K/uL [place] # (Auto) (0.11-0.59) K/uL Eos # (Auto) (0-0.5) K/uL Baso # (Auto) (0-0.2) K/uL Immature Gran # (Auto) (0.00-0.02) K/uL Protein C Activity Protein S Activity Factor V Leiden Mutat Pending Factor V Leiden Interp Pending Sodium (136-145) mmol/L Potassium (3.5-5.1) mmol/L Chloride (98-107) mmol/L Carbon Dioxide (21-32) mmol/L Anion Gap (3-11) BUN (7-18) mg/dl Creatinine (0.6-1.4) mg/dl Est Cr Clr Drug Dosing ml/min Est GFR ( Amer) Est GFR (Non-Af Amer) BUN/Creatinine Ratio (10-20) Glucose (70-99) mg/dl Calcium (8.5-10.1) mg/dl Homocysteine Pending Beta-2-GPI IgG Ab Pending Beta-2-GPI IgM Ab Pending Anti-Cardiolipin IgG Ab Anti-Cardiolipin IgM Ab Prothrombin Gene Mutate Pending Prothromb Gene Comment Pending 04/02/21 04/02/21 04/02/21 Range/Units 12:19 06:22 06:22 WBC 11.38 H (4.8-10.8) K/uL RBC 4.56 L (4.7-6.1) M/uL Hgb 13.8 L (14.0-18.0) g/dL Hct 41.3 L (42-52) % MCV 90.6 (80-100) fL MCH 30.3 (25-34) pg MCHC 33.4 (32-36) g/dL RDW Std Deviation 43.6 (36.4-46.3) fL RDW Coeff of Ariel 13.2 (11.5-14.5) % Plt Count 362 (130-400) K/uL MPV 9.8 (7.4-10.4) fL Immature Gran % (Auto) 0.3 % Neut % (Auto) 72.6 % Lymph % (Auto) 15.5 % [place] % (Auto) 10.4 % Eos % (Auto) 1.0 % Baso % (Auto) 0.2 % Neut # (Auto) 8.28 H (1.4-6.5) K/uL Lymph # (Auto) 1.76 (1.2-3.4) K/uL [place] # (Auto) 1.18 H (0.11-0.59) K/uL Eos # (Auto) 0.11 (0-0.5) K/uL Baso # (Auto) 0.02 (0-0.2) K/uL Immature Gran # (Auto) 0.03 H (0.00-0.02) K/uL Protein C Activity Pending Protein S Activity Pending Factor V Leiden Mutat Factor V Leiden Interp Sodium 142 (136-145) mmol/L Potassium 3.7 (3.5-5.1) mmol/L Chloride 109 H (98-107) mmol/L Carbon Dioxide 27 (21-32) mmol/L Anion Gap 6.0 (3-11) BUN 20 H (7-18) mg/dl Creatinine 0.88 (0.6-1.4) mg/dl Est Cr Clr Drug Dosing 87.0 ml/min Est GFR ( Amer) 106.7 Est GFR (Non-Af Amer) 92.1 BUN/Creatinine Ratio 22.2 H (10-20) Glucose 95 (70-99) mg/dl Calcium 8.4 L (8.5-10.1) mg/dl Homocysteine Beta-2-GPI IgG Ab Beta-2-GPI IgM Ab Anti-Cardiolipin IgG Ab Pending Anti-Cardiolipin IgM Ab Pending Prothrombin Gene Mutate Prothromb Gene Comment PG Care Time/CCT Total # of Minutes Spent Total Time Spent with Patient: Total time spent is greater than 50% in coordination of care (as documented) at patient's floor/unit and/or counseling patient: Coding Level of Care Code 83632 Subseq Hosp Care Lvl 3 Diagnoses Left pontine stroke I63.50 Hypertension, uncontrolled I10 Hyperlipidemia E78.5 Abnormal EKG R94.31 DVT prophylaxis Z29.9
[2021-04-02] MEDS: ENOXAPARIN INJ 40 MG/0.4 ML SYR SQ SCH (16:00)
[2021-04-03 07:10] LABS: BUN Creatinine Ratio 24.5 (10-20); Calcium 8.5 mg/dl (8.5-10.1); Creatinine Clr Calc Pharmacy 77.4 ml/min; Est GFR (African American) 94.2 ml/min; Est GFR (Non-African American) 81.3 ml/min; Potassium 3.4 mmol/L (3.5-5.1)
[2021-04-03] MEDS: METOPROLOL TARTRATE 25 MG TAB PO SCH ×2 (08:28→21:20)
[2021-04-03] MEDS: ATORVASTATIN 40 MG TAB PO SCH (08:29)
[2021-04-03] MEDS: amLODIPine BESYLATE 5 MG TAB PO SCH (08:29)
[2021-04-03] MEDS: ASPIRIN 81 MG ECTAB PO SCH (08:29)
[2021-04-03] MEDS: lisinopril 10 MG TAB PO SCH (08:29)
[2021-04-03] MEDS ORDERED: POTASSIUM CHLORIDE CRTAB 20 MEQ TABCR PO STA (08:51)
--- NOTE | 2021-04-03 20:12 | Hospitalist Progress Note ---
Date of Service April 03, 2021 Assessment & Plan (1) Left pontine stroke: Mr. Julian was admitted with stroke like symptoms: slurred speach, difficulty swallowing, RIGHT-sided weakness, elevated BP and EKG suggesting long standing UNTREATED HYPERTENSION. In the ER his work-up includes the following studies: -- CTA of the Neck shows no significant vertebral or carotid artery stenoses. -- CT scan of the head shows no acute processes. -- CTA of the Head shows that the internal carotid arteries are widely patent, as are the anterior and middle cerebral arteries. The right A1 segment is atretic. The vertebrobasilar system and posterior cerebral arteries are widely patent. The right vertebral artery is dominant. The left vertebral artery is diminutive. There is no aneurysm, high-grade stenosis, or focal vessel cutoff identified throughout the intracranial circulation. There is no evidence of hemorrhage, mass effect, or acute territorial ischemia by CT criteria routine angiographic phase technique. Patient failed his dysphagia screen in the ER, tongue deviating to the right. Now able to eat His Blood pressure was elevated and given that he had hypertensive emergency: HTN in 243/122 which came down to 198/130. Patient required hydralazine IV on the floor and symptoms worsened with BP documented near 150s on 04/01 However, afterwards his symptoms worsened with right-sided weakness, also with palpitations amd chest pain--> perhaps allergic rxn to hydralazine. This could also have been an evolution of his stroke vs watershed vs lower blood pressure. MRI of brain was completed and showed 2 small acute left pontine strokes Patient reports symptoms today are stable from yesterday with continued slurred speech, some difficulty with chewing although worked with speech therapy, and weakness on the right side upper extremity greater than lower extremity Appreciate neurology consultation -Blood pressure is now with improved control after adding lisinopril -Continue aspirin 81 mg daily -Add atorvastatin 40 mg daily as lipids are uncontrolled-total cholesterol 253, LDL 180 Hemoglobin A1c normal at 5.7% Echocardiogram negative No arrhythmia on telemetry-suggest 30-day cardiac event monitor after discharge -Neurology also recommended hypercoagulable ofoc-sj-[id number] was ordered with the exception of Antithrombin III and lupus anticoagulant as he was on Lovenox at the time the labs were drawn-these can be ordered through PCP and outpatient visit and results of hypercoagulable work-up will need to be followed up on. PT/OT is recommending rehab-he has no insurance and therefore case management is assisting--applied for medical assistance (2) Hypertension, uncontrolled: As above, hypertensive emergency on admission in the setting of acute left pontine stroke Blood pressures now much improved after the following: -Started amlodipine 5 mg daily. -Added lisinopril 10 mg daily Added metoprolol tartrate 12.5 mg p.o. twice daily (3) Hyperlipidemia: Significantly elevated lipid panel as above Start atorvastatin Check lipid panel and LFTs in 6 weeks (4) Abnormal EKG: EKG shows LVH by voltage criteria consistent with uncontrolled hypertension. Hypertension medications as above Echocardiogram negative (5) Hypokalemia: mild, replaced with po KCl follow BMP in AM (6) DVT prophylaxis: SCDs Disposition-continued stay, awaiting rehab placement-auth not approved yet. Is medically stable for discharge Admission and Anticipated Discharge Date Admission Date: March 31, 2021 Subjective Pt continues to feel weakness on right side. Is doing ok with eating. Denies headache, no CP/SOB, no nausea. BPs better controlled. Discussed care with pt and significant other on facetime in room. Decision made to proceed with acute rehab. Worked with PT today Tele with NSR, rates 60-80s Review of Systems Review of Systems: All systems reviewed & are unremarkable except as noted in HPI & below Physical Exam Constitutional: WD/WN, vitals as above Eyes: + anicteric sclerae and EOM intact bilaterally; no anisocoria and no nystagmus ENMT: external ear and nose normal, oropharynx normal Neck: trachea midline, no thyromegaly Respiratory: normal respiratory effort, lungs clear to auscultation Cardiovascular: RRR, no murmur, no edema Chest (Breasts): Chest: normal inspection of chest Gastrointestinal (Abdomen): normal bowel sounds, soft, nontender, no hepatosplenomegaly Musculoskeletal: Extremities: extremities normal to inspection; no cyanosis and no clubbing Skin: no rashes, warm and dry Neurologic: CN's II-XI intact bilaterally (except tongue deviation to right,rt facial droop), + focal motor deficit (2/5 strength RUE improved,4/5 RLE,5/5 otherwise) and awake; not confused Motor/Sensory: no tremor and no sensory deficit Psychiatric: A+Ox3, euthymic affect Lymphatic: no lymphedema Results & Data Results & Data ([facility]) Vital Signs (Past 12 Hours) Vital Signs Temp Pulse Pulse Resp BP Pulse Ox 04/03/21 15:47 36.9 C 79 16 146/93 H 96 04/03/21 14:47 91 H 04/03/21 11:50 36.9 C 65 18 136/83 95 Laboratory Results 04/03/21 Range/Units 06:23 Sodium 141 (136-145) mmol/L Potassium 3.4 L (3.5-5.1) mmol/L Chloride 110 H (98-107) mmol/L Carbon Dioxide 28 (21-32) mmol/L Anion Gap 4.0 (3-11) BUN 24 H (7-18) mg/dl Creatinine 0.99 (0.6-1.4) mg/dl Est Cr Clr Drug Dosing 77.4 ml/min Est GFR ( Amer) 94.2 ml/min Est GFR (Non-Af Amer) 81.3 ml/min BUN/Creatinine Ratio 24.5 H (10-20) Glucose 88 (70-99) mg/dl Calcium 8.5 (8.5-10.1) mg/dl PG Care Time/CCT Total # of Minutes Spent Total Time Spent with Patient: Total time spent is greater than 50% in coordination of care (as documented) at patient's floor/unit and/or counseling patient: Coding Level of Care Code 38499 Subseq Hosp Care Lvl 3 Diagnoses Left pontine stroke I63.50 Hypertension, uncontrolled I10 Hyperlipidemia E78.5 Abnormal EKG R94.31 Hypokalemia E87.6 DVT prophylaxis Z29.9
[2021-04-04 07:44] LABS: BUN Creatinine Ratio 24.1 (10-20); Calcium 7.9 mg/dl (8.5-10.1); Creatinine Clr Calc Pharmacy 86.1 ml/min; Est GFR (African American) 106.2 ml/min; Est GFR (Non-African American) 91.6 ml/min; Magnesium 2.7 mg/dl (1.8-2.4); Potassium 3.7 mmol/L (3.5-5.1)
[2021-04-04] MEDS: ASPIRIN 81 MG ECTAB PO SCH (09:23)
[2021-04-04] MEDS: METOPROLOL TARTRATE 25 MG TAB PO SCH (09:23)
[2021-04-04] MEDS: lisinopril 10 MG TAB PO SCH (09:23)
[2021-04-04] MEDS: amLODIPine BESYLATE 5 MG TAB PO SCH (09:24)
[2021-04-04] MEDS: ATORVASTATIN 40 MG TAB PO SCH (09:24)
--- NOTE | 2021-04-04 14:44 | Discharge Summary ---
Date of Service April 04, 2021 Admission HPI Per Admitting Provider Mr. Julian is a 60 year old male without significant past medical history who presents to [facility] ER today with slurred speech and markedly elevated blood pressure. Patient has been in his usual state of health leading up to admission. 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 Patient tried to take an Aspirin at one point this morning and he recalls having difficulty swallowing it. His slurred speech has persisted. Patient was doing a Zoom session with a friend this morning and his friend noticed his slurred speech. This friend subsequently texted the patient's girlfriend/SO and asked "is something going on with Philip? He was slurring his speech on our Zoom session". Patient offers no other complaints. A he denies any focal weakness, numbness, tingling, paralysis of any extremities. He has not had any changes bowel or bladder habits. No urinary or fecal incontinence. He denies any visual disturbances, black spots, blind spots, or loss of visual rider. He has not experienced anything like this past. Patient's girlfriend subsequently pick him up and brought to the ER for further evaluation. Thus far CTA of the Neck shows no significant vertebral or carotid artery stenoses. CT scan of the head shows no acute processes. CTA of the Head shows that the internal carotid arteries are widely patent, as are the anterior and middle cerebral arteries. The right A1 segment is atretic. The vertebrobasilar system and posterior cerebral arteries are widely patent. The right vertebral artery is dominant. The left vertebral artery is diminutive. There is no aneurysm, high-grade stenosis, or focal vessel cutoff identified throughout the intracranial circulation. There is no evidence of hemorrhage, mass effect, or acute territorial ischemia by CT criteria routine angiographic phase technique. Patient failed his dysphagia screen in the ER, tongue deviating to the right. His blood pressure on presentation to the ER was 243/122, and it has subsequently come down to 198/130. Patient is not on a daily medications. He does take some supplemental vitamins. This is not new or a change in his normal regimen. Principal Diagnosis Stroke Discharge Exam Constitutional WD/WN, vitals as above Eyes EOM intact bilaterally; no conjunctival abnormality ENMT external ear and nose normal, oropharynx normal Neck trachea midline, no thyromegaly normal visual inspection Respiratory normal respiratory effort, lungs clear to auscultation no respiratory distress Cardiovascular RRR, no murmur, no edema Gastrointestinal (Abdomen) Inspection/Auscultation: abdomen normal to inspection; abdomen not distended Skin no rashes, warm and dry Neurologic moves all extremities (Right arm and leg with less movement.) and awake Psychiatric Orientation: alert, oriented to person and cooperative Discharge Data Allergies Allergy/AdvReac Type Severity Reaction Status Date / Time hydralazine AdvReac Intermediate Palpitations,chest Verified 04/04/21 00:24 pain CRUCIFEROUS VEGETABLES Allergy Severe PROJECTILE Uncoded 03/31/21 11:58 VOMITING Consultations 03/31/21 11:43 ED Decision to Admit Stat 03/31/21 14:22 Consult Neurology Routine Ordered Studies 03/31/21 10:32 CT head/brain wo con Stat 03/31/21 10:35 CT angio head w con Stat CT angio neck with con Stat 03/31/21 15:48 CT head/brain wo con Stat 03/31/21 16:11 MR brain wo/w con Routine Hospital Course (1) Left pontine stroke: Mr. Julian was admitted with stroke like symptoms: slurred speach, difficulty swallowing, RIGHT-sided weakness, elevated BP and EKG suggesting long standing UNTREATED HYPERTENSION. In the ER his work-up includes the following studies: -- CTA of the Neck shows no significant vertebral or carotid artery stenoses. -- CT scan of the head shows no acute processes. -- CTA of the Head shows that the internal carotid arteries are widely patent, as are the anterior and middle cerebral arteries. The right A1 segment is atretic. The vertebrobasilar system and posterior cerebral arteries are widely patent. The right vertebral artery is dominant. The left vertebral artery is diminutive. There is no aneurysm, high-grade stenosis, or focal vessel cutoff identified throughout the intracranial circulation. There is no evidence of hemorrhage, mass effect, or acute territorial ischemia by CT criteria routine angiographic phase technique. Patient failed his dysphagia screen in the ER, tongue deviating to the right. Now able to eat His Blood pressure was elevated and given that he had hypertensive emergency: HTN in 243/122 which came down to 198/130. Patient required hydralazine IV on the floor and symptoms worsened with BP documented near 150s on 04/01 However, afterwards his symptoms worsened with right-sided weakness, also with palpitations amd chest pain--> perhaps allergic rxn to hydralazine. This could also have been an evolution of his stroke vs watershed vs lower blood pressure. MRI of brain was completed and showed 2 small acute left pontine strokes Patient reports symptoms today are stable from yesterday with continued slurred speech, some difficulty with chewing although worked with speech therapy, and weakness on the right side upper extremity greater than lower extremity Appreciate neurology consultation -Blood pressure is now with improved control after adding lisinopril -Continue aspirin 81 mg daily -Add atorvastatin 40 mg daily as lipids are uncontrolled-total cholesterol 253, LDL 180 Hemoglobin A1c normal at 5.7% Echocardiogram negative No arrhythmia on telemetry-suggest 30-day cardiac event monitor after discharge. Will need to arrange after [facility]. -Neurology also recommended hypercoagulable [id number] was ordered with the exception of Antithrombin III and lupus anticoagulant as he was on Lovenox at the time the labs were drawn-these can be ordered through PCP and outpatient visit and results of hypercoagulable work-up will need to be followed up on. PT/OT is recommending rehab-he has no insurance and therefore case management is assisting--applied for medical assistance (2) Hypertension, uncontrolled: As above, hypertensive emergency on admission in the setting of acute left pontine stroke Blood pressures now much improved after the following: - Started amlodipine 5 mg daily. - Added lisinopril 10 mg daily - On discharge, his BP ranged from 113/74 to 160/105. Would likely start a diuretic (HCTZ 25 mg PO daily for example), but I wanted to give his BP time to adjust. Best to avoid sudden BP changes post-stroke. (3) Hyperlipidemia: Significantly elevated lipid panel as above Start atorvastatin Check lipid panel and LFTs in 6 weeks (4) Abnormal EKG: EKG shows LVH by voltage criteria consistent with uncontrolled hypertension. Hypertension medications as above Echocardiogram negative (5) Hypokalemia: mild, replaced with po KCl follow BMP in AM (6) DVT prophylaxis: SCDs Disposition-continued stay, awaiting rehab placement-auth not approved yet. Is medically stable for discharge Total Time Total Time Spent Total Time Spent (In Minutes): 35 Discharge Plan Discharge Items Patient Disposition: Transfer Inpatient Rehab Fac Reason For Visit: TIA, HYPERTENSIVE URGENCY Discharge Diagnosis: Stroke, elevated blood pressure Activity: Resume your previous activity Non-emergency contact: Primary Care Provider and Neurologist Call non-emergency contact if: your symptoms worsen Follow-up/Referrals: Daisy Mortensen PA-C [Physician [employer] Technician] - (Please see Festus or any other neurology provider in the office in 2-3 weeks.) PCP,NO [Primary Care Provider] - Diet: Heart Healthy Addtl Attending Provider Instructions: Mr. Julian, You were admitted to the hospital with slurred speech and developed the right- sided weakness shortly into your stay. We are starting medications to try to avoid any further strokes. Part of this will be lowering your blood pressure which has been running high while in the hospital and almost certainly prior to admission. We also sent out blood tests to see if your blood is hypercoagulable (meaning extra prone to clotting). These tests are not back yet, but should be followed up by the neurology team. Finally, after your discharge from [facility], you should get a heart monitor for about 2-4 weeks to be sure your heart isn't going into funny rhythms that might increase your risk of stroke (called "atrial fibrillation"). We did not see any evidence of this heart rhythm in the hospital, but the standard of care is to monitor you for at least several weeks to be sure. As we discussed, the first two weeks after a stroke, you have the best chance at regaining ability, but this can continue on for 2 years to regain function. I know you are motivated to improve, and I wish you the best in your recovery. Pending Studies at Discharge: No Stand-Alone Forms: My [facility] Skilled Items Patient informed of condition?: No DNR: No Discharge Level of Care: Acute rehab Communicable Disease: No Discharge Prognosis: Improving Lines: None Urinary Catheter: No Medications and DC Order Prescriptions: New atorvastatin 40 mg Tablet 40 mg PO QAM Qty: 0 RF: 0 amlodipine [Norvasc] 5 mg Tablet 5 mg PO QAM Qty: 0 RF: 0 aspirin 81 mg Tablet,Delayed Release (Dr/Ec) 81 mg PO DAILY Qty: 0 RF: 0 lisinopril 10 mg Tablet 10 mg PO QAM Qty: 0 RF: 0 Discharge Orders: Discharge Order (Routine); Ordered 04/04/21 Ordered By: Ghulam Camacho Admission Data Admit Date/Time: 03/31/21 12:31 Attending Provider: Ghulam Camacho Admit Provider: Louie Beckman Primary Care Provider: PCP,NO Other Providers: Linwood Sewell ; [facility] ; Trupti Honeycutt Stokes ; Ghulam Camacho Other Interventions: Discharge Summary Assessment (RN) Last Done: 04/04/21 11:42 Coding Level of Care Code D/C Day Management >30 mins Diagnoses Left pontine stroke I63.50 Hypertension, uncontrolled I10 Hyperlipidemia E78.5 Abnormal EKG R94.31 Hypokalemia E87.6 DVT prophylaxis Z29.9
[2021-04-05 22:51] LABS: Anti Cardiolipin Ab IgG <14 GPL; Anti Cardiolipin Ab IgM <12 MPL; Protein S Functional(Activity) 120 % (70-150)
[2021-04-08 20:16] LABS: B2 Glycoprotein IgG <9 SGU (<=20); B2 Glycoprotein IgM <9 SMU (<=20)
== END 2021-04-04 12:40 ==
LOC: ED 10:21 → 2S 12:31 → SUATTDRO 12:31 → 2S 13:11